=== PATIENT | male | born 1985 | race Caucasian/White ===

== ENCOUNTER 2020-03-30 15:00 | Emergency (ER) | payer MEDICAID ==
[~2020-03-30] VITALS: Ht 177.8 cm; Wt 82.6 kg
[2020-03-30 15:00] VITALS: BP_SYST 157
[2020-03-30] MEDS ORDERED: BACITRACIN 1 GM OINT TP ONE (16:00)
[2020-03-30 16:07] LABS: BASOPHILS # (AUTO) 0.1 K/uL (0.0-0.2); BASOPHILS % (AUTO) 1.3 % (0.0-2.0); EOSINOPHILS # (AUTO) 0.4 K/uL (0.0-0.4); HEMATOCRIT 41.8 % (36-54); HEMOGLOBIN 14.4 g/dL (14.0-18.0); LYMPHOCYTES # (AUTO) 1.6 K/uL (1.0-5.5); LYMPHOCYTES % (AUTO) 22.9 % (20.5-51.5); MEAN CORPUSCULAR HEMOGLOBIN 31 pg (27-31); MEAN CORPUSCULAR HGB CONC 34 % (32-36); MEAN CORPUSCULAR VOLUME 90 fL (79.0-98.0); MONOCYTES # (AUTO) 0.5 K/uL (0.0-1.0); MONOCYTES % (AUTO) 7.5 % (1.7-9.3); NEUTROPHILS # (AUTO) 4.5 K/uL (1.8-7.7); NEUTROPHILS % (AUTO) 63.3 % (40.0-70.0); PLATELET COUNT (AUTO) 270 K/uL (130-430); RED BLOOD CELL COUNT(AUTO) 4.64 MIL/uL (4.2-6.2); RED CELL DISTRIBUTION WIDTH 13.6 % (9.0-15.0); WHITE BLOOD COUNT (AUTO) 7.1 K/uL (4.8-10.8)
[2020-03-30 16:20] LABS: CALCIUM 8.5 mg/dL (8.4-11.0); CREATININE 0.92 mg/dL (0.55-1.30); POTASSIUM 4.2 mmol/L (3.5-5.1)
[2020-03-30 16:21] LABS: INR 0.9 (0.80-1.20); PROTHROMBIN TIME 9.4 SECS (9.5-12.5)
[2020-03-30 16:23] LABS: C-REACTIVE PROTEIN QUANT 2.2 mg/dL (0-0.5)
[2020-03-30 16:25] LABS: ALBUMIN 3.7 g/dL (3.4-4.8); TOTAL BILIRUBIN 0.3 mg/dL (0.0-1.0)
[2020-03-30 16:57] VITALS: BP_SYST 157
== END 2020-03-30 16:58 | disposition home or self-care (01) ==
LOC: SED 15:00
DX: T23.201A Burn of second degree of right hand, unspecified site, initial encounter (principal); T31.0 Burns involving less than 10% of body surface; X08.8XXA Exposure to other specified smoke, fire and flames, initial encounter; Y93.89 Activity, other specified; Y92.89 Other specified places as the place of occurrence of the external cause; Y99.8 Other external cause status
CPT/HCPCS: 36415; 80053; 83605; 85025; 85610-TC; 85730-TC; 86140; 99284